=== PATIENT | female | born 2000 | race American Indian/Alaskan Native ===

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

== ENCOUNTER 2020-01-28 15:10 | Emergency (ER) | payer SELFPAY ==
[2020-01-28 15:23] VITALS: BP 116/70
--- NOTE | 2020-01-28 16:16 | Emergency Department Report ---
- General Chief complaint: Animal Bite Stated complaint: LT SIDE BITE Source: patient Mode of arrival: Ambulatory Limitations: No Limitations - History of Present Illness Initial comments: 19-year-old -[place] female presents to the emergency room for 3-day history of a possible bug bite to her left buttocks. Patient reports that she has been taking amoxicillin 500 mg twice a day for the last 3 days that her mother has given her. Patient states that it is painful to touch does not itch. Last menstrual period was 01/23/2020. Patient has no known drug allergies currently takes no medications on a daily basis. Patient denies any fever chills no nausea no vomiting no drainage from the bump. MD complaint: insect bite/sting Onset/Timin -: days(s) Tetanus Up to Date: yes Location: buttocks Severity scale (0 -10): 4 Quality: aching Consistency: intermittent Improves with: none Worsens with: none Associated symptoms: denies other symptoms Treatments Prior to Arrival: antibiotic - Related Data Previous Rx's Medication Instructions Recorded Last Taken Type Ciprofloxacin HCl [Ciprofloxacin 500 mg PO Q12HR #14 tab 10/23/16 Unknown Rx TAB] Cyclobenzaprine [Flexeril] 10 mg PO TID #20 tablet 10/23/16 Unknown Rx Meloxicam [Mobic] 15 mg PO TID #30 tablet 10/23/16 Unknown Rx Fluconazole [Diflucan] 150 mg PO DAILY #2 tablet 09/28/17 Unknown Rx Sulfamethoxazole/Trimethoprim 1 each PO BID #14 tablet 09/28/17 Unknown Rx [Bactrim DS TAB] metroNIDAZOLE [Flagyl] 500 mg PO Q12HR #14 tab 09/28/17 Unknown Rx Clindamycin [Clindamycin CAP] 300 mg PO Q8H #21 cap 01/28/20 Unknown Rx Allergies Allergy/AdvReac Type Severity Reaction Status Date / Time No Known Allergies Allergy Unverified 10/23/16 10:42 Abscess Boil HPI - HPI Chief Complaint: Animal Bite Stated Complaint: LT SIDE BITE Home Medications: Previous Rx's Medication Instructions Recorded Last Taken Type Ciprofloxacin HCl [Ciprofloxacin 500 mg PO Q12HR #14 tab 10/23/16 Unknown Rx TAB] Cyclobenzaprine [Flexeril] 10 mg PO TID #20 tablet 10/23/16 Unknown Rx Meloxicam [Mobic] 15 mg PO TID #30 tablet 10/23/16 Unknown Rx Fluconazole [Diflucan] 150 mg PO DAILY #2 tablet 09/28/17 Unknown Rx Sulfamethoxazole/Trimethoprim 1 each PO BID #14 tablet 09/28/17 Unknown Rx [Bactrim DS TAB] metroNIDAZOLE [Flagyl] 500 mg PO Q12HR #14 tab 09/28/17 Unknown Rx Clindamycin [Clindamycin CAP] 300 mg PO Q8H #21 cap 01/28/20 Unknown Rx Allergies/Adverse Reactions: Allergies Allergy/AdvReac Type Severity Reaction Status Date / Time No Known Allergies Allergy Unverified 10/23/16 10:42 ED Review of Systems ROS: Stated complaint: LT SIDE BITE Other details as noted in HPI ED Past Medical Hx - Past Medical History Previous Medical History?: No - Surgical History Past Surgical History?: No - Social History Smoking Status: Never Smoker Substance Use Type: None - Medications Home Medications: Home Medications Medication Instructions Recorded Confirmed Last Taken Type Ciprofloxacin HCl [Ciprofloxacin 500 mg PO Q12HR #14 tab 10/23/16 Unknown Rx TAB] Cyclobenzaprine [Flexeril] 10 mg PO TID #20 tablet 10/23/16 Unknown Rx Meloxicam [Mobic] 15 mg PO TID #30 tablet 10/23/16 Unknown Rx Fluconazole [Diflucan] 150 mg PO DAILY #2 tablet 09/28/17 Unknown Rx Sulfamethoxazole/Trimethoprim 1 each PO BID #14 tablet 09/28/17 Unknown Rx [Bactrim DS TAB] metroNIDAZOLE [Flagyl] 500 mg PO Q12HR #14 tab 09/28/17 Unknown Rx Clindamycin [Clindamycin CAP] 300 mg PO Q8H #21 cap 01/28/20 Unknown Rx ED Physical Exam - General Limitations: No Limitations General appearance: alert, in no apparent distress - Head Head exam: Present: atraumatic, normocephalic - Eye Eye exam: Present: normal appearance - ENT ENT exam: Present: mucous membranes moist - Extremities Exam Extremities exam: Present: normal inspection - Back Exam Back exam: Present: normal inspection - Neurological Exam Neurological exam: Present: alert, oriented X3, normal gait - Psychiatric Psychiatric exam: Present: normal affect, normal mood - Skin Skin exam: Present: erythema - Expanded Skin Exam Expanded Description of rash: Present: tenderness, erythematous, swelling, indurated. Absent: fluctuant ED Course Vital Signs 01/28/20 15:22 Temperature 98.5 F Pulse Rate 92 H Respiratory 16 Rate Blood Pressure 116/70 O2 Sat by Pulse 99 Oximetry ED Medical Decision Making - Medical Decision Making 19-year-old -[place] female presents to the emergency room for 3-day history of a possible bug bite to her left buttocks. Patient reports that she has been taking amoxicillin 500 mg twice a day for the last 3 days that her mother has given her. Patient states that it is painful to touch does not itch. Last menstrual period was 01/23/2020. Patient has no known drug allergies currently takes no medications on a daily basis. Patient denies any fever chills no nausea no vomiting no drainage from the bump. Patient be placed on clindamycin and instructed to take [id number] i buprofen or Tylenol for pain management. Patient follow-up with her primary care provider this continues to be of concern. Critical care attestation.: If time is entered above; I have spent that time in minutes in the direct care of this critically ill patient, excluding procedure time. ED Disposition Clinical Impression: Localized skin eruption Disposition: DC-01 TO HOME OR SELFCARE Is pt being admited?: No Does the pt Need Aspirin: No Condition: Stable Additional Instructions: Complete this antibiotic as prescribed take [id number] Tylenol or ibuprofen for pain management. Follow-up with your primary care provider if this continues to be a concern to you. Prescriptions: Clindamycin [Clindamycin CAP] 300 mg PO Q8H #21 cap Referrals: PRIMARY MD KIRK [Primary Care Provider] - 3-5 Days SUE HUTCHISON MD [Staff Physician] - 3-5 Days Forms: Work/School Release Form(ED)
== END 2020-01-28 16:33 | disposition home or self-care (01) ==
LOC: ED 15:10
DX: R21 Rash and other nonspecific skin eruption (principal)
CPT/HCPCS: 99282